=== PATIENT | male | born 1965 | race Caucasian/White ===

== ENCOUNTER 2023-09-29 15:02 | Emergency (ER) | payer OTHER ==
[~2023-09-29] VITALS: Ht 172.7 cm; Wt 83.1 kg
[2023-09-29 17:30] VITALS: BP 135/95; PULSE 100; RESP 18; TEMP 98.1; O2SAT 97
== END 2023-09-29 17:31 | disposition home or self-care (01) ==
LOC: ER 15:04
DX: K40.90 Unilateral inguinal hernia, without obstruction or gangrene, not specified as recurrent (principal)
CPT/HCPCS: 99283